=== PATIENT | male | born 1975 | race Caucasian/White ===

== ENCOUNTER 2017-05-01 16:00 | Emergency (ER) | payer SELFPAY ==
[~2017-05-01] VITALS: Ht 160 cm; Wt 79.0 kg
[~2017-05-01 16:00] MED LIST: ACET500T98 PO; FAMO-96 PO; IBUP-1542 PO; OMEP20CA9 PO
[2017-05-01 16:03] VITALS: Ht 160 cm; Wt 79.0 kg
== END 2017-05-01 19:12 | disposition left against medical advice (07) ==
LOC: FTE 16:00
DX: Z53.21 Procedure and treatment not carried out due to patient leaving prior to being seen by health care provider (principal)